=== PATIENT | female | born 1955 | race Caucasian/White ===

== ENCOUNTER 2017-02-21 05:39 | Emergency (ER) | payer OTHER ==
[~2017-02-21] VITALS: Ht 165.1 cm; Wt 82.4 kg
[~2017-02-21 05:39] MED LIST: MELO15TA3 PO; Oxycodone/Acetaminophen PO; SYN100 PO; lisinopril PO
[2017-02-21 05:41] VITALS: TEMP 36.6; Ht 165.1 cm; Wt 82.4 kg
[2017-02-21] MEDS ORDERED: ASPIRIN 324 MG CHEW PO STA (05:56)
--- NOTE | 2017-02-21 05:56 | EMERGENCY ROOM VISIT NOTE ---
History Report prepared by Ji: Cruzito Claudio Under the Supervision of: Dr. Samir Glynn M.D. First contact with patient: 05:44 Chief Complaint: CHEST PAIN Stated Complaint: CHEST PAIN History of Present Illness The patient is a 61 year old female who presents to the Emergency Room with complaints of intermittent chest pain that she woke up with this morning. The pain is localized to the center of the chest and is described as a pressure sensation. The pain is currently resolved. She also notes some abdominal soreness. She was nauseous yesterday but not today. She took some Aspirin WELDER TACK. The patient denies shortness of breath. She has a history of arrhythmias but denies history of CAD. She is on 2.5 mg of Lisinopril for hypertension. She has a history of hyperlipidemia but is not on any medications. The patient is not diabetic. She was never a nursing home smoker. The patient's father had heart disease in his 50s. She denies any recent travel, falls, or injuries. She denies history of gastric disease or gallbladder disease. Source of History: patient Onset: this morning Position: chest Quality: pressure Timing: intermittent Associated Symptoms: + abdominal pain, + nausea (yesterday), No SOB Review of Systems See HPI for pertinent positives & negatives. A total of 10 systems reviewed and were otherwise negative. Past Medical & Surgical Medical Problems: (1) Synovial cyst of lumbar facet joint Family History CABG Social History Smoking Status: Never Smoker Marital Status: Housing Status: lives with family Current/Historical Medications Scheduled Levothyroxine Sodium (Levothyroxine Sodium), 100 MCG PO DAILY Lisinopril (Zestril), 2.5 MG PO DAILY Meloxicam (Mobic), 15 MG PO HS Prednisone (Prednisone), 5 MG PO DAILY Allergies Coded Allergies: No Known Allergies (Verified , 12/23/14) Physical Exam Vital Signs Date Time Temp Pulse Resp B/P Pulse Ox O2 Delivery O2 Flow Rate FiO2 02/21/17 06:19 75 18 156/96 97 Room Air 02/21/17 05:55 81 02/21/17 05:50 97 Room Air 02/21/17 05:41 36.6 89 20 165/100 97 Room Air Physical Exam GENERAL: Patient is mildly anxious appearing and in no acute distress. HEENT: No acute trauma, normocephalic atraumatic, mucous membranes moist, no nasal congestion, no scleral icterus. NECK: No stridor, no adenopathy, no meningismus, trachea is midline. LUNGS: No dyspnea. Clear to auscultation and equal bilaterally. No wheeze, no rhonchi. HEART: Regular rate and rhythm. No murmurs, rubs, gallops appreciated. ABDOMEN: Soft, nontender, bowel sounds positive, no masses appreciated, no peritonitis. BACK: No midline tenderness, no CVA tenderness EXTREMITIES: Normal motion all extremities, no cyanosis, no edema. NEUROLOGIC: Alert and oriented, no acute motor or sensory deficits, no focal weakness, cranial nerves grossly intact. SKIN: No rash, no jaundice, no diaphoresis. Medical Decision & Procedures ER Provider Diagnostic Interpretation: X ray results are stated below per my interpretation and the radiologist's interpretation. CHEST ONE VIEW PORTABLE CLINICAL HISTORY: Chest Pain dyspnea COMPARISON STUDY: 12/01/2014 FINDINGS: The bones soft tissues and hemidiaphragms are normal. The cardiomediastinal silhouette is normal. The lungs are clear. The pulmonary vasculature is normal. IMPRESSION: Negative chest. Electronically signed by: Branden Castellano M.D. 02/21/2017 6:37 AM Dictated Date/Time: 02/21/2017 6:36 AM Laboratory Results 02/21/17 06:15 Red Blood Count 4.59, Mean Corpuscular Volume 86.3, Mean Corpuscular Hemoglobin 29.2, Mean Corpuscular Hemoglobin Concent 33.8, Mean Platelet Volume 10.7, Neutrophils (%) (Auto) 61.2, Lymphocytes (%) (Auto) 29.3, Monocytes (%) (Auto) 7.3, Eosinophils (%) (Auto) 1.8, Basophils (%) (Auto) 0.2, Neutrophils # (Auto) 3.01, Lymphocytes # (Auto) 1.44, Monocytes # (Auto) 0.36, Eosinophils # (Auto) 0.09, Basophils # (Auto) 0.01 02/21/17 06:15 Test 02/21/17 06:15 02/21/17 06:26 White Blood Count 4.92 K/uL (4.8-10.8) Red Blood Count 4.59 M/uL (4.2-5.4) Hemoglobin 13.4 g/dL (12.0-16.0) Hematocrit 39.6 % (37-47) Mean Corpuscular Volume 86.3 fL (80-100) Mean Corpuscular Hemoglobin 29.2 pg (25-34) Mean Corpuscular Hemoglobin Concent 33.8 g/dl (32-36) Platelet Count 165 K/uL (130-400) Mean Platelet Volume 10.7 fL (7.4-10.4) Neutrophils (%) (Auto) 61.2 % Lymphocytes (%) (Auto) 29.3 % Monocytes (%) (Auto) 7.3 % Eosinophils (%) (Auto) 1.8 % Basophils (%) (Auto) 0.2 % Neutrophils # (Auto) 3.01 K/uL (1.4-6.5) Lymphocytes # (Auto) 1.44 K/uL (1.2-3.4) Monocytes # (Auto) 0.36 K/uL (0.11-0.59) Eosinophils # (Auto) 0.09 K/uL (0-0.5) Basophils # (Auto) 0.01 K/uL (0-0.2) RDW Standard Deviation 42.5 fL (36.4-46.3) RDW Coefficient of Variation 13.5 % (11.5-14.5) Immature Granulocyte % (Auto) 0.2 % Immature Granulocyte # (Auto) 0.01 K/uL (0.00-0.02) Anion Gap 4.0 mmol/L (3-11) Est Creatinine Clear Calc Drug Dose 73.7 ml/min Estimated GFR () 85.7 Estimated GFR (Non- 74.0 BUN/Creatinine Ratio 14.6 (10-20) Calcium Level 9.0 mg/dl (8.5-10.1) Total Creatine Kinase 57 U/L (26-192) Creatine Kinase MB < 0.5 ng/ml (0.5-3.6) Creatine Kinase MB Ratio (0-3.0) Troponin I < 0.015 ng/ml (0-0.045) Bedside Troponin I 0.000 ng/ml (0-0.045) Laboratory results as reviewed by me. Medications Administered Medications (Trade) Dose Ordered Sig/Adelaide Route Start Time Stop Time Status Last Admin Dose Admin Aspirin (Aspirin Chew) 162 mg STK-MED ONCE .ROUTE 02/21/17 06:33 02/21/17 06:34 DC 02/21/17 06:30 162 MG ECG Indication: chest pain Rate (beats per minute): 82 Rhythm: normal sinus Findings: no acute ischemic change, no ectopy ED Course 0548: The patient was evaluated in room B9. A complete history and physical exam was performed. 0556: Aspirin 162 mg PO. 0700: The patient is feeling okay. She is agreeable with a Cardiology consultation. 07: Dr. Norwood, [employer], was paged. 07: Discussed the case with Dr. Norwood, [employer]. 0730: The patient was signed out to Dr. Lees at shift change pending stress testing. Medical Decision Differential: Cardiac Ischemia (STEMI, NSTEMI, Unstable Angina, etc), Aortic Dissection, Arrhythmia, Pulmonary Embolism, Pneumonia, Pneumothorax, MSK, Infectious, Pericarditis/Myocarditis, Esophageal Rupture, Gastrointestinal, amongst other pathologies entertained. 61 yr old female arrives with episode of substernal chest pressure that awoke her form sleep. Took ASA 81mg x 2 and now without symptoms on arrival. Stable and feeling well. EKG, trop, cxr negative. Good pulses bilateral lower legs. NO further symptoms. Vitals looks good. Does have history of HTN, DLP, and family CAD history. Last stress test 3-4 yrs ago. Discussed with cards. Will do 4 hour cardiac trop rule out and then if negative do stress echo (patient feels she can walk without issue on tread mill). Signed patient out to Dr Lees awaiting second trop and stress echo. Consults Time Called: [phone] Consulting Physician: Dr. Norwood, [employer]. Returned Call: [phone]: Discussed the case with Dr. Norwood, [employer]. Impression Primary Impression: Substernal precordial chest pain Scribe Attestation The scribe's documentation has been prepared under my direction and personally reviewed by me in its entirety. I confirm that the note above accurately reflects all work, treatment, procedures, and medical decision making performed by me. Departure Information Dispostion Still a Patient Referrals Albert Garcia D.O. (PCP) Patient Instructions My [facility]
[2017-02-21] MEDS ORDERED: LEVO100T7 PO (06:08)
[2017-02-21] MEDS ORDERED: LISI-729 PO (06:09)
[2017-02-21] MEDS ORDERED: PRED-301 PO (06:11)
[2017-02-21 06:26] LABS: BASO % 0.2 %; BASO ABS # 0.01 K/uL (0-0.2); COMPLETE YES; EOS % 1.8 %; HEMATOCRIT 39.6 % (37-47); IG% 0.2 %; LYMPH % 29.3 %; LYMPH ABS # 1.44 K/uL (1.2-3.4); MEAN CELL VOLUME 86.3 fL (80-100); MEAN CORPUSCULAR HEMOGLOBIN 29.2 pg (25-34); MEAN CORPUSCULAR HGB CONC 33.8 g/dl (32-36); MEAN PLATELET VOLUME 10.7 fL (7.4-10.4); MONO % 7.3 %; NEUT % 61.2 %; PLATELET COUNT 165 K/uL (130-400); RED BLOOD COUNT 4.59 M/uL (4.2-5.4); WHITE BLOOD COUNT 4.92 K/uL (4.8-10.8)
[2017-02-21] MEDS ORDERED: ASPIRIN 81 MG CHEW ONE (06:33)
--- NOTE | 2017-02-21 06:39 | DIAGNOSTIC IMAGING REPORT ---
CHEST ONE VIEW PORTABLE CLINICAL HISTORY: Chest Pain dyspnea COMPARISON STUDY: 12/01/2014 FINDINGS: The bones soft tissues and hemidiaphragms are normal. The cardiomediastinal silhouette is normal. The lungs are clear. The pulmonary vasculature is normal. IMPRESSION: Negative chest. Electronically signed by: Branden Castellano M.D. 02/21/2017 6:37 AM Dictated Date/Time: 02/21/2017 6:36 AM
[2017-02-21 06:43] LABS: BLOOD UREA NITROGEN 12 mg/dl (7-18); BUN/CREATININE RATIO 14.6 (10-20); CARBON DIOXIDE 31 mmol/L (21-32); CHLORIDE 109 mmol/L (98-107); CREATININE 0.85 mg/dl (0.60-1.20); GLUCOSE 88 mg/dl (70-99); POTASSIUM 3.8 mmol/L (3.5-5.1); SODIUM 144 mmol/L (136-145)
--- NOTE | 2017-02-21 14:53 | EMERGENCY ROOM VISIT NOTE ---
ED Visit Note First contact with patient: 07:23 I assumed care at the change of shift. Dr. Glynn had been the initial physician. The patient was to have a repeat cardiac troponin at 4 hours from the original. If this test was negative, she was going to undergo a stress test. The second troponin was performed and returned normal. The patient went to the cardiopulmonary lab and had a stress echo. This was by report negative. The patient was felt stable for discharge home. She was encouraged to return here for worsening pain or symptoms. She will try some antacids [id number] to see if the antacids help her symptoms. She was encouraged to see her doctor this week in follow-up.
[2017-02-21 14:56] VITALS: BP 147/109; PULSE 89; O2SAT 98
--- NOTE | 2017-02-21 18:27 | EXERCISE STRESS ECHO ---
*NOTICE TO RECEIVING [employer] This information is strictly Confidential and protected under [place] law. [place] law prohibits you from making any further disclosure of this information unless further disclosure is expressly permitted by the written consent of the person to whom it pertains or is authorized by law. A general authorization for the release of medical or other information is not sufficient for this purpose. Hospital accepts no responsibility if the information is made available to any other person, INCLUDING THE PATIENT. Interpretation Summary * Name: DENTON VILLAFANA Study Date: 02/21/2017 01:17 PM BP: 157/91 mmHg * Patient Location: [facility] HR: 72 * : 1955 (M/d/yyyy) Gender: Female Height: 65 in * Age: 61 yrs Ethnicity: [place] Weight: 181 lb * Ordering Physician: Samir Glynn * Referring Physician: MATEUSZ * Performed By: Maddi Weiner RDCS * * Reason For Study: CHEST PRESSURE * BSA: 1.9 m2 * History: CHEST PRESSURE * The patient exhibited a hypertensive response with stress. * The study was technically adequate. * STRESS STUDY: Normal exercise stress echocardiogram. No echocardiographic or ECG evidence of myocardial ischemia having achieved heart rate adequate for diagnostic purposes. * -- Conclusions -- * Left ventricular systolic function is normal. * Ejection Fraction = 55-60%. * Resting wall motion: Normal. Stress wall motion: Appropriate increase in Left ventricular systolic function and decrease in cavity size. No stress induced segmental wall motion abnormalities. * Grade I diastolic dysfunction, (abnormal relaxation pattern). * There is trace mitral regurgitation. * There is trace tricuspid regurgitation. Procedure Details * ECHOEX, CPT #[id number] * ECHO DOPPLER, CPT #[id number] * ECHO COLOR FLOW, CPT #[id number] Left Ventricle * The left ventricle is normal in size. * There is no thrombus. * There is normal left ventricular wall thickness. * Ejection Fraction = 55-60%. * Left ventricular systolic function is normal. * Resting wall motion: Normal. Stress wall motion: Appropriate increase in Left ventricular systolic function and decrease in cavity size. No stress induced segmental wall motion abnormalities. Right Ventricle * The right ventricle is normal in size and function. Atria * The left atrial size is normal. * Right atrial size is normal. * No ASD detected; PFO is not assessed. Mitral Valve * The mitral valve is normal. * There is no mitral valve stenosis. * There is trace mitral regurgitation. Tricuspid Valve * The tricuspid valve is normal. * There is no tricuspid stenosis. * There is trace tricuspid regurgitation. Aortic Valve * The aortic valve is trileaflet. * No hemodynamically significant valvular aortic stenosis. * No aortic regurgitation is present. Pulmonic Valve * The pulmonic valve is not well visualized. Great Vessels * The aortic root is normal size. Pericardium * There is no pericardial effusion. Stress Parameters * The baseline ECG displays normal sinus rhythm. * Stress ECG: No ST changes. No arrhythmias. * The stress portion of this study was personally supervised by the undersigned interpreting physician. * Rest heart rate was '72' BPM. * Rest blood pressure was '157/91' * Maximum heart rate achieved was 166 bpm. * Maximum heart rate was 104 % of maximum age-predicted heart rate. * Maximum blood pressure was '207/107' * Total exercise time was '6:00' * Maximum exercise MET level achieved was '7.00' METS * Maximum treadmill speed was '2.50' miles per hour. * Maximum treadmill elevation was '12.00'% grade. * Exercise was terminated due to 'fatigue' * The patient exhibited a hypertensive response with stress. Left Ventricular Diastolic Function * Grade I diastolic dysfunction, (abnormal relaxation pattern). MMode 2D Measurements and Calculations IVSd 0.99 cm IVSs 1.3 cm LVIDd 4.5 cm LVIDs 2.9 cm LVPWd 1.0 cm LVPWs 1.4 cm IVS/LVPW 0.96 FS 33.9 % EDV(Teich) 90.1 ml ESV(Teich) 33.4 ml EF(Teich) 62.9 % EDV(cubed) 88.2 ml ESV(cubed) 25.5 ml EF(cubed) 71.1 % % IVS thick 30.6 % % LVPW thick 41.1 % LV mass(C)d 152.5 grams LV mass(C)dI 80.4 grams/m\S\2 LV mass(C)s 132.4 grams LV mass(C)sI 69.8 grams/m\S\2 SV(Teich) 56.7 ml SI(Teich) 29.9 ml/m\S\2 SV(cubed) 62.7 ml SI(cubed) 33.1 ml/m\S\2 Ao root diam 3.2 cm Ao root area 8.0 cm\S\2 LA dimension 3.2 cm LA/Ao 10 LVAd ap4 20.3 cm\S\2 LVLd ap4 7.1 cm EDV(MOD-sp4) 47.7 ml LVAs ap4 11.9 cm\S\2 LVLs ap4 6.0 cm ESV(MOD-sp4) 21.5 ml EF(MOD-sp4) 54.9 % LVAd ap2 19.5 cm\S\2 LVLd ap2 7.1 cm EDV(MOD-sp2) 45.7 ml LVAs ap2 11.1 cm\S\2 LVLs ap2 5.8 cm ESV(MOD-sp2) 18.8 ml EF(MOD-sp2) 58.9 % SV(MOD-sp4) 26.2 ml SI(MOD-sp4) 13.8 ml/m\S\2 SV(MOD-sp2) 26.9 ml SI(MOD-sp2) 14.2 ml/m\S\2 Doppler Measurements and Calculations MV E max mariposa 68.4 cm/sec MV A max mariposa 85.4 cm/sec MV E/A 0.80 MV dec time 0.26 sec Ao V2 max 136.4 cm/sec Ao max PG 7.4 mmHg Ao max PG (full) 3.9 mmHg LV V1 max PG 3.5 mmHg LV V1 max 94.1 cm/sec TR max mariposa 226.5 cm/sec
== END 2017-02-21 14:57 | disposition home or self-care (01) ==
LOC: C.EDB 05:40
DX: R07.2 Precordial pain (principal); I10 Essential (primary) hypertension; Z79.899 Other long term (current) drug therapy; Z82.49 Family history of ischemic heart disease and other diseases of the circulatory system

== ENCOUNTER → 2017-10-20 | Outpatient (CLI) | payer OTHER ==
[~2017-10-20] MED LIST changes: +LEVO100T7 PO; +LISI-729 PO; -Oxycodone/Acetaminophen PO; +PRED-301 PO; -SYN100 PO; -lisinopril PO
--- NOTE | 2017-10-21 14:26 | MAMMOGRAPHY REPORT ---
BILATERAL DIGITAL SCREENING MAMMOGRAM TOMOSYNTHESIS WITH CAD: 10/20/2017 CLINICAL HISTORY: Routine screening. Patient has no complaints. TECHNIQUE: Breast tomosynthesis in addition to standard 2D mammography was performed. Current study was also evaluated with a Computer Aided Detection (CAD) system. COMPARISON: Comparison is made to exams dated: 10/18/2016 mammogram, 10/04/2015 mammogram, 09/28/2014 mammogram, 09/22/2013 mammogram, 09/16/2012 mammogram, and 09/11/2011 mammogram - [facility]. BREAST COMPOSITION: The tissue of both breasts is heterogeneously dense, which may obscure small mas ses. FINDINGS: There is a stable benign-appearing partially circumscribed 12 mm mass in the right breast. Scattered benign-appearing microcalcifications bilaterally. No new suspicious mass, architectural d istortion or cluster of microcalcifications is seen. IMPRESSION: ACR BI-RADS CATEGORY 1: NEGATIVE There is no mammographic evidence of malignancy. A 1 year screening mammogram is recommended. The pa tient will receive written notification of the results. Approximately 10% of breast cancers are not detected with mammography. A negative mammographic report should not delay biopsy if a clinically suggestive mass is present. Rosa Maria Phelps M.D. ay/:10/20/2017 16:40:48 Computer Numeric Control Setter: Norah NEGRON)(Dorothy), [facility] letter sent: Normal 1/2 BI-RADS Code: ACR BI-RADS Category 1: Negative
== END | disposition home or self-care (01) ==
LOC: C.MAMM 16:21
PROVIDERS: ATTEND Obstetrics & Gynecology
DX: Z12.31 Encounter for screening mammogram for malignant neoplasm of breast (principal)